=== PATIENT | female | born 1995 | race Caucasian/White ===

== ENCOUNTER 2017-11-06 10:13 | Emergency (ER) | payer OTHER ==
[~2017-11-06] VITALS: Ht 149.9 cm; Wt 48.0 kg
[2017-11-06 10:16] VITALS: BP 134/79; PULSE 113; RESP 16; TEMP 99.7; O2SAT 99
--- NOTE | 2017-11-06 10:51 | PD ---
HPI Chief Complaint: GI Complaint Time Seen by Provider: 10:30 Travel History International Travel<30 days: No Contact w/Intl Traveler<30days: No Traveled to known affect area: No History of Present Illness HPI The patient was seen and examined in the presence of the nurse. This patient complains of intermittent abdominal cramps. Duration 1 week. Severity is moderate. She had some nausea but no vomiting or diarrhea. Has low-grade temp in the 99-100 range. Denies cough or congestion or sore throat. No vaginal discharge. 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 She cannot ambulate. She denies urinary complaints. No alleviating factors. No exacerbating factors PFSH Social History Alcohol Use: No Tobacco Use: No Substance Use: No Allergies-Medications (Allergen,Severity, Reaction): Coded Allergies: cefaclor (Verified Allergy, Severe, Rash, 11/06/17) levofloxacin (Verified Allergy, Intermediate, Rash, 11/06/17) Review of Systems General / Constitutional: No: Fever Eyes: No: Visual changes HENT: No: Headaches Cardiovascular: No: Chest Pain or Discomfort Respiratory: No: Shortness of Breath Gastrointestinal: Positive: Nausea, Abdominal Pain Genitourinary: No: Dysuria Musculoskeletal: Positive: Weakness, No: Pain Skin: No Rash Neurologic: Positive: Weakness Psychiatric: No: Depression Endocrine: No: Polydipsia Hematologic/Lymphatic: No: Easy Bruising Physical Exam Narrative GENERAL: Well-nourished, well-developed patient with contractures from muscular dystrophy SKIN: Focused skin assessment reveals no rash and nodules. Skin is Warm and dry. HEAD: Atraumatic. Normocephalic. EYES: Pupils equal and round. No scleral icterus. No injection or drainage. ENT: No nasal bleeding or discharge. Mucous membranes pink and moist. NECK: Trachea midline. No JVD. CARDIOVASCULAR: Regular rate and rhythm. No murmur appreciated. RESPIRATORY: No accessory muscle use. Clear to auscultation. Breath sounds equal bilaterally. GASTROINTESTINAL: Abdomen soft, non-tender, nondistended. Hepatic and splenic margins not palpable. MUSCULOSKELETAL: Has leg contractures bilaterally. No clubbing. No cyanosis. No edema. NEUROLOGICAL: Awake and alert. No obvious cranial nerve deficits. Motor grossly within normal limits. Normal speech. PSYCHIATRIC: Appropriate mood and affect; insight and judgment normal. Data Data Last Documented VS Vital Signs Date Time Temp Pulse Resp B/P (MAP) Pulse Ox O2 Delivery O2 Flow Rate FiO2 11/06/17 11:51 18 11/06/17 10:16 99.7 113 134/79 (97) 99 Orders Orders Complete Blood Count With Diff (11/06/17 10:42) Comprehensive Metabolic Panel (11/06/17 10:42) Urinalysis - C+S If Indicated (11/06/17 10:42) Ed Urine Pregnancytest Poc (11/06/17 10:42) Urine Culture (11/06/17 11:20) Labs Laboratory Tests Test 11/06/17 11:00 11/06/17 11:20 White Blood Count 9.3 TH/MM3 Red Blood Count 4.63 MIL/MM3 Hemoglobin 14.2 GM/DL Hematocrit 41.7 % Mean Corpuscular Volume 90.1 FL Mean Corpuscular Hemoglobin 30.6 PG Mean Corpuscular Hemoglobin Concent 34.0 % Red Cell Distribution Width 15.0 % Platelet Count 381 TH/MM3 Mean Platelet Volume 7.4 FL Neutrophils (%) (Auto) 63.1 % Lymphocytes (%) (Auto) 30.0 % Monocytes (%) (Auto) 5.5 % Eosinophils (%) (Auto) 0.9 % Basophils (%) (Auto) 0.5 % Neutrophils # (Auto) 5.9 TH/MM3 Lymphocytes # (Auto) 2.8 TH/MM3 Monocytes # (Auto) 0.5 TH/MM3 Eosinophils # (Auto) 0.1 TH/MM3 Basophils # (Auto) 0.0 TH/MM3 CBC Comment DIFF FINAL Differential Comment Blood Urea Nitrogen 5 MG/DL Creatinine LESS THAN 0.15 MG/DL Random Glucose 77 MG/DL Total Protein 7.7 GM/DL Albumin 3.9 GM/DL Calcium Level 8.4 MG/DL Alkaline Phosphatase 136 U/L Aspartate Amino Transf (AST/SGOT) 18 U/L Alanine Aminotransferase (ALT/SGPT) 17 U/L Total Bilirubin 0.3 MG/DL Sodium Level 138 MEQ/L Potassium Level 3.9 MEQ/L Chloride Level 104 MEQ/L Carbon Dioxide Level 27.7 MEQ/L Anion Gap 6 MEQ/L Estimat Glomerular Filtration Rate 631 ML/MIN Urine Color YELLOW Urine Turbidity HAZY Urine pH 7.5 Urine Specific [place] 1.015 Urine Protein TRACE mg/dL Urine Glucose (UA) NEG mg/dL Urine Ketones 10 mg/dL Urine Occult Blood NEG Urine Nitrite NEG Urine Bilirubin NEG Urine Urobilinogen LESS THAN 2.0 MG/DL Urine Leukocyte Esterase SMALL Urine RBC 2 /hpf Urine WBC 9 /hpf Urine Squamous Epithelial Cells 14 /hpf Urine Amorphous Sediment FEW Urine Bacteria RARE /hpf Microscopic Urinalysis Comment CULTURE INDICATED MDM Medical Decision Making Medical Screen Exam Complete: Yes Emergency Medical Condition: Yes Medical Record Reviewed: Yes Differential Diagnosis Colitis, cystitis, flu syndrome, ectopic Narrative Course I have reviewed the patient's electronic medical record. Urinalysis will be cultured but is not suspicious for the cause of her symptoms Urine is negative CBC is normal Metabolic profile is normal Her abdomen is soft and benign and nontender. Etiology of her symptoms unclear. She does not want to be put through a speculum exam given her chronic leg contractures from muscular dystrophy. I would be very uncomfortable and awkward. She does not have any discharge or lesions are really much suspicion for PID as the cause of her symptoms, although I did discuss with her that I cannot rule it out without a proper exam. She will follow-up with her physician. Diagnosis Primary Impression: Abdominal pain Qualified Codes: R10.32 - Left lower quadrant pain Additional Impression: Muscular dystrophy Additional Instructions: The patient was advised to follow up with their physician and return if they worsen. Med/Other Pt SpecificInfo: Other Disposition: 01 DISCHARGE HOME Condition: Stable Wayne Lees MD Nov 06, 2017 10:51
[2017-11-06 11:41] LABS: AUTOMATED NEUTROPHIL # 5.9 TH/MM3 (1.8-7.7); BASOPHIL % 0.5 % (0.0-2.0); EOSINOPHIL # 0.1 TH/MM3 (0-0.4); EOSINOPHIL % 0.9 % (0.0-4.0); HEMATOCRIT 41.7 % (35.0-46.0); HEMOGLOBIN 14.2 GM/DL (11.6-15.3); LYMPHOCYTE # 2.8 TH/MM3 (1.0-4.8); MEAN CELL VOLUME 90.1 FL (80.0-100.0); MEAN CORPUSCULAR HEMOGLOBIN 30.6 PG (27.0-34.0); MEAN PLATELET VOLUME 7.4 FL (7.0-11.0); MONO % 5.5 % (0.0-8.0); MONOCYTE # 0.5 TH/MM3 (0-0.9); NEUT % 63.1 % (16.0-70.0); PLATELET COUNT 381 TH/MM3 (150-450); RED BLOOD COUNT 4.63 MIL/MM3 (4.00-5.30); WHITE BLOOD COUNT 9.3 TH/MM3 (4.0-11.0)
[2017-11-06 11:42] LABS: AMORPHOUS SEDIMENT, URINE FEW; BACTERIA, URINE RARE /hpf; BILIRUBIN, URINE NEG (NEG); BLOOD, URINE NEG (NEG); GLUCOSE,URINE NEG (NEG); KETONE, URINE 10 mg/dL (NEG); NITRITE,URINE NEG (NEG); PH, URINE 7.5 (5.0-8.5); SQUAMOUS EPITHELIAL CELL URINE 14 /hpf (0-5); URINE COLOR YELLOW (YELLW/STRAW); URINE LEUKOCYTE ESTERASE SMALL (NEG)
[2017-11-06 12:08] LABS: ALBUMIN 3.9 GM/DL (3.4-5.0); AST (GOT) 18 U/L (16-38); BICARBONATE 27.7 MEQ/L (21.0-32.0); BLOOD UREA NITROGEN 5 MG/DL (7-18); CALCIUM 8.4 MG/DL (8.5-10.1); CHLORIDE 104 MEQ/L (98-107); CREATININE LESS THAN 0.15 MG/DL (0.50-1.00); GLOMERULAR FILTRATION RATE 631 ML/MIN (>89); GLUCOSE,RANDOM 77 MG/DL (74-106); SODIUM (NA) 138 MEQ/L (136-145)
[2017-11-06 12:11] LABS: ALKALINE PHOSPHATASE 136 U/L (45-117); ALT (GPT) 17 U/L (9-42); TOTAL BILIRUBIN ADULT 0.3 MG/DL (0.2-1.0); TOTAL PROTEIN 7.7 GM/DL (6.4-8.2)
== END 2017-11-06 14:31 | disposition home or self-care (01) ==
LOC: NEPC 10:13
DX: R10.32 Left lower quadrant pain (principal); G71.0 Muscular dystrophy; R11.0 Nausea
CPT/HCPCS: 80053; 81001; 84703; 85025; 87086; 99283